=== PATIENT | female | born 1995 | race Caucasian/White ===

== ENCOUNTER → 2020-01-25 | Outpatient (CLI) | payer MEDICAID ==
[~2020-01-25] VITALS: Ht 160 cm; Wt 95.3 kg
[~2020-01-25] MED LIST: ESCI5SOL2 PO; FENTANYL CITRATE/PF 50MCG/ML 2ML VIAL ONE; GLYCOPYRROLATE 0.2 MG/ML 2ML VIAL ONE; HYDR-4001 PO; IBUP-2029 PO; LIDOCAINE HCL/PF 1% 10 MG/ML 5ML VIAL ONE; METOCLOPRAMIDE HCL 10MG/2ML VIAL ONE; MIDAZOLAM HCL 2 MG/2 ML VIAL ONE; ONDANSETRON HCL 4MG/2ML INJ ONE; PROPOFOL 200MG/20ML VIAL IV ONE; SUCCINYLCHOLINE CHLORIDE 200MG/10ML IV ONE
== END | disposition home or self-care (01) ==
LOC: LAB 14:39
PROVIDERS: ATTEND Orthopaedic Surgery
DX: Z03.818 Encounter for observation for suspected exposure to other biological agents ruled out (principal)
CPT/HCPCS: C9803; U0003

== ENCOUNTER 2020-01-28 08:23 | Inpatient (IN) | payer MEDICAID ==
[~2020-01-28] VITALS: Ht 160 cm; Wt 95.3 kg
[~2020-01-28 08:23] MED LIST changes: -FENTANYL CITRATE/PF 50MCG/ML 2ML VIAL ONE; -GLYCOPYRROLATE 0.2 MG/ML 2ML VIAL ONE; -LIDOCAINE HCL/PF 1% 10 MG/ML 5ML VIAL ONE; -METOCLOPRAMIDE HCL 10MG/2ML VIAL ONE; -MIDAZOLAM HCL 2 MG/2 ML VIAL ONE; -ONDANSETRON HCL 4MG/2ML INJ ONE; -PROPOFOL 200MG/20ML VIAL IV ONE; -SUCCINYLCHOLINE CHLORIDE 200MG/10ML IV ONE
[2020-01-28 09:02] LABS: BASOPHILS % 0.3 % (0.0-2.0); EOSINOPHILS % 0.7 % (0.0-5.0); HEMATOCRIT. 40.3 % (36.0-48.0); HEMOGLOBIN. 14.1 g/dL (12.0-16.0); LYMPHOCYTES % 23.2 % (20.0-50.0); MEAN CORPUSCULAR HEMOGLOBIN 30.9 pg (28.0-32.0); MEAN CORPUSCULAR VOLUME 88.1 fL (81.0-99.0); MEAN PLATELET VOLUME 7.7 fl (7.4-10.4); MONOCYTES % 4.4 % (2.0-8.0); NEUTROPHILS % 71.4 % (40.0-76.0); PLATELET 339 x1000/uL (130-400); RED BLOOD CELL COUNT 4.57 mill/uL (4.2-5.4); RED CELL DISTRIBUTION WIDTH 12.8 % (11.6-14.6)
[2020-01-28 09:06] LABS: UCG SCREEN NEGATIVE
[2020-01-28] MEDS ORDERED: BUPIVACAINE/EPINEPH/PF 0.25%/0.0005 10ML ONE (09:50)
[2020-01-28] MEDS ORDERED: VANCOMYCIN HCL 1 GM/VIAL ONE (09:51)
[2020-01-28] MEDS ORDERED: NORMAL SALINE 0.9% 10 ML SYR ONE (09:51)
[2020-01-28] MEDS ORDERED: BACITRACIN 50,000 UNITS/VIAL ONE (09:51)
[2020-01-28] MEDS ORDERED: LACTATED RINGERS 1,000 ML IV SCH (10:00)
[2020-01-28] MEDS ORDERED: ROPIVACAINE HCL 10MG/ML 20 ML VIAL EPI ONE (11:26)
[2020-01-28] MEDS ORDERED: LIDOCAINE HCL 2% JELLY 5ML ONE (13:22)
[2020-01-28] MEDS ORDERED: SODIUM CHLORIDE 0.9% 1,000 ML IV ONE (14:59)
[2020-01-28] MEDS ORDERED: MEPERIDINE HCL/PF 25MG/ML CPJ IV PRN ×2 (15:00)
[2020-01-28] MEDS ORDERED: ONDANSETRON HCL 4MG/2ML INJ IV PRN ×2 (15:00→19:25)
[2020-01-28] MEDS ORDERED: MORPHINE SULFATE 2 MG/ML CPJ (NOT FOR IM USE) IV PRN (15:00)
[2020-01-28] MEDS: HYDROMORPHONE HCL/PF 2MG/ML CPJ IV PRN ×2 (15:23→15:36)
[2020-01-28] MEDS ORDERED: CEFAZOLIN 2,000 MG in DEXT 5% WATER 100 ML IV SCH (15:45)
[2020-01-28] MEDS ORDERED: HYDROCODONE/ACETAMINOPHEN 10/325MG TABLET PO PRN (19:25)
[2020-01-28] MEDS ORDERED: ACETAMINOPHEN 325MG TABLET PO PRN (19:30)
[2020-01-28] MEDS ORDERED: MAGNESIUM HYDROXIDE 400MG/5ML 30ML UDC PO PRN (19:30)
[2020-01-28 20:00] VITALS: BP 106/57
[2020-01-28] MEDS ORDERED: ZOLPIDEM TARTRATE 5MG TABLET PO PRN (20:00)
[2020-01-28] MEDS: HYDROCODONE/ACETAMINOPHEN 10/325MG TABLET PO PRN (21:30)
[2020-01-28 22:00] VITALS: BP 106/57
[2020-01-28] MEDS: CEFAZOLIN 2,000 MG in DEXT 5% WATER 100 ML IV SCH (22:22)
[2020-01-29] VITALS: BP 100/61
[2020-01-29 04:00] VITALS: BP 117/59
[2020-01-29] MEDS: HYDROCODONE/ACETAMINOPHEN 10/325MG TABLET PO PRN ×2 (04:20→10:28)
[2020-01-29 06:01] VITALS: BP 117/59
[2020-01-29] MEDS: CEFAZOLIN 2,000 MG in DEXT 5% WATER 100 ML IV SCH (06:13)
[2020-01-29] MEDS ORDERED: DOCUSATE SODIUM 100MG CAPSULE PO SCH (09:00)
[2020-01-29] MEDS ORDERED: ASPIRIN 325MG EC TABLET PO SCH (09:00)
[2020-01-29 12:00] VITALS: BP 117/76
== END 2020-01-29 14:55 | disposition home or self-care (01) | DRG 313 ==
LOC: OR 08:23 → EDSTATUS 11:30 → 6EST 20:53
PROVIDERS: ADMIT Orthopaedic Surgery; ATTEND Orthopaedic Surgery
PROC: 0QSJ04Z Reposition Right Fibula with Internal Fixation Device, Open Approach (ICD-10-PCS; principal; 2020-01-28)
PROC: 0QSG04Z Reposition Right Tibia with Internal Fixation Device, Open Approach (ICD-10-PCS; 2020-01-28)
DX: S82.841A Displaced bimalleolar fracture of right lower leg, initial encounter for closed fracture (principal); Y93.51 Activity, roller skating (inline) and skateboarding; Y92.89 Other specified places as the place of occurrence of the external cause; Y99.8 Other external cause status; V00.121A Fall from non-in-line roller-skates, initial encounter
CPT/HCPCS: 36415; 73600; 76000; 81025; 85025; 93005; 97116; 97162; 97530; 97535; C1713; J0171; J0330; J0690; J1170; J2250; J2405; J2704; J2765; J2795; J3010; J3370; J3490; J7060